=== PATIENT | male | born 1960 | race Caucasian/White ===

== ENCOUNTER → 2018-03-05 14:34 | Emergency (ER) | payer BC ==
--- OUTSIDE RECORDS SUMMARY | 2018-03-05 14:58 | XMS REPORT ---
:1960 External Reference #:[id number] Author Organization [employer] Address [address] [place] [address] [place] [address] Phone [phone] Care Team Providers Name Role Phone Raúl Martinez MD Care Team Information Social Media Marketing Specialist Unavailable Raúl Martinez MD Primary Care Physician Unavailable Payers Type Date Identification Numbers Payment Provider Subscriber Commercial Effective: Policy Number: BS Billy Jason 2013 [id number] Expires: 2015 PayID: [id number] [address] [address] [place] [address] [employer] B Policy Number: [id number] BS Facets Ryan Jason PayID: [id number] [address] [address] [place] [address] Problems Date Description Provider Status Onset: 03/03/2015 Sleep disorder Marci Obrien MD Active Onset: 03/25/2015 Obstructive sleep apnea syndrome Marci Obrien MD Active Family History Date Family Member(s) Problem(s) Comments Father Is 83 years old, in great health ; deviated septum Father No Current Problems Mother Minor heart attack; stent placed ; [facility] alive at age 81 doing well Siblings 3 Siblings All healthy ; younger brothert w/Etoh issues Social History Type Date Description Comments Marital Status Lives With Occupation Currently Working Cigarette Use Quite when age 20 ETOH Use Occasionally consumes alcohol ETOH Use Ipa and red wine ; bourbon Smoking Patient is a former smoker Recreational Drug Use Denies Drug Use Smoking Smoked in early teens and in college Daily Caffeine Tea occasionally ; mild coffee Exercise Type/Frequency Exercises regularly Allergies, Adverse Reactions, Alerts Date Description Reaction Status Severity Comments 03/03/2015 Azithromycin active GI upset 03/03/2015 Erythromycin active GI upset Medications Medication Date Status Form Strength Qnty SIG Indications Ordering Provider Epipen 2-Eduardo 03/02/ Active Solution 0.3mg/0.3M use as Unknown 2014 Auto-Injec L directed t Venlafaxine HCL 03/02/ Active Tablets 75mg take every Unknown 2014 day by mouth Glucosamine 03/02/ Active 2 every Unknown 2014 day by mouth Multivitamins 03/02/ Active Capsules 2 by mouth Unknown 2014 every day Valacyclovir 03/02/ Active Tablets 500mg 2 by mouth Unknown HCL 2014 every day prn for cold sores Flexamin Triple / Active 2 x a day Unknown Strength 0000 by mouth Glucosamine Condroitin Magnesium / Active Capsules 300mg 1 by mouth Unknown 0000 once a day Valacyclovir 03/03/ Hx Tablets 500mg 2 by mouth Unknown HCL 2014 - two times 03/03/ a day for 2014 2 days prn for cold sore Fish Oil Double 03/02/ Hx Capsules 1200mg 1 by mouth Unknown Strength 2014 - every day 2017 Campbell 3 03/02/ Hx Capsules 360mg 1 by mouth Unknown 2014 - qd. 2017 Fibercon 03/02/ Hx Tablets 625mg 625mg 1 by Unknown 2015 - mouth 03/04/ day 2017 Calcium 500 03/02/ Hx Tablets 1 by mouth Unknown 2014 - every day 2017 Vital Signs Date Vital Result Comment 03/05/2018 Height 66.75 inches 5'6.75" Weight 171.25 lb Heart Rate 94 /min recheck 74, reg-irregular, frequent pauses BP Systolic Sitting 124 mmHg Rue regular cuff BP Diastolic Sitting 84 mmHg Rue regular cuff BP Systolic Recheck 130 mmHg right BP Diastolic Recheck 70 mmHg right Respiratory Rate 16 /min O2 % BldC Oximetry 97 % BMI (Body Mass Index) 27.0 kg/m2 03/25/2015 Height 66.75 inches 5'6.75" Weight 174.00 lb Heart Rate 92 /min BP Systolic Sitting 138 mmHg BP Diastolic Sitting 78 mmHg Respiratory Rate 18 /min O2 % BldC Oximetry 99 % BMI (Body Mass Index) 27.5 kg/m2 03/03/2015 Height 66 inches 5'6" Weight 175.25 lb Heart Rate 102 /min BP Systolic Sitting 134 mmHg BP Diastolic Sitting 74 mmHg Respiratory Rate 18 /min Body Temperature 97.0 F O2 % BldC Oximetry 98 % BMI (Body Mass Index) 28.3 kg/m2 Neck Circumference in inches 16 Results Description No Information Procedures Date CPT Code Description Status 07/22/2016 79751 Holter Monitor Review (24 hr)dr review & interp only Completed 07/19/2016 37682 ECG Monitor/Recording W/Visual Superimposition Scanning Completed 06/06/2016 12859 Stress Test Completed 03/10/2015 76268 Sleep Study Unattended,HRT Rate,Oxygen Sat,Resp Completed Effort/Airflow 12/14/2010 01550 Color Flow Doppler/Interp & Reprt Completed 12/14/2010 28513 Pulse Wave/Continuous-Interp.RPT Completed 12/14/2010 98701 ECHO Transthorasic Realtime 2D W Doppler & Color Flow Completed Hosp Encounters Type Date Location Provider CPT E/M Dx Office Visit 03/05/2018 [facility] Luda Rocha, [address] G47.33 1:45p [facility] YEVGENIY FLORES, MEDNEZ I49.9 Office Visit 03/25/2015 9:45a [facility] [place] [address] G47.33 [facility] Office Visit 03/03/2015 2:45p [facility] [place] [address] G47.10 [facility] R06.83 Plan of Care Future Appointment(s):05/21/2018 2:00 pm - Luda Rocha DNP, RN, MALDONADO-BC at [facility]03/05/2018 - Luda Rocha DNP, RN, MALDONADO- BCG47.33 Obstructive sleep apnea (adult) (pediatric)Comments:On CPAP AHI 5.6/ hour mildFollow up:2 monthsRecommendations:Continue PAP device, Benefitting and compliant with treatment. Cleaning Wipe off mask daily (baby wipe-no scent, or warm water) Clean mask, tubing, filter, and water chamber weekly in mild no scent dish soap and water. Hang to dry. So-Clean is an option (not covered by insurance) If you have any sleepiness while driving you MUST avoid operating a vehicle or machinery. If you have difficulty with your equipment, or need to replace your mask or hoses, please contact your homecare agency. A weight change of 20 pounds or more may have an effect on your equipment; if you are experiencing problems please call for an appointment. If you have any further questions, please call the [facility] at [phone].i49.9 Cardiac arrhythmia, unspecifiedRecommendations:To be evaluated in the emergency room Call for an appointment to follow-up with primary care after released from hospital.
--- NOTE | 2018-03-05 15:10 | ED ---
Palpitations / Dysrhythmia - HPI Summary HPI Summary: The pt is a 57 y/[facility] since 14:00 today. He got referred to the ED by the staff of a sleep study he is participating in. The pt notes flutter, occassioanal UE tremors, anxiety but denies loss of appetite, dizziness, weakness, and CP. He reports that he drinks EtOH (wine and beer) daily with meals but does not consider himself an alcoholic. The pt reports caffeine consumption today. - History of Current Complaint Chief Complaint: EDDysrhythmPalp Time Seen by Provider: 03/05/18 14:51 Hx Obtained From: Patient Onset/Duration: Sudden Onset Character: Fluttering, Skipped Beats - Allergy/Home Medications Allergies/Adverse Reactions: Allergies Allergy/AdvReac Type Severity Reaction Status Date / Time azithromycin Allergy Unknown Verified 03/05/18 15:16 Reaction Details bee venom protein (honey bee) Allergy Itching Verified 03/05/18 15:16 erythromycin base Allergy GI Upset Verified 03/05/18 15:16 Home Medications: Home Medications Glucosamine 2 cap PO DAILY 03/05/18 [History Confirmed 03/05/18] Magnesium 300 mg Capsule 300 mg PO DAILY 03/05/18 [History Confirmed 03/05/18] Multivitamin [Multivitamins] 1 cap PO DAILY 03/05/18 [History Confirmed 03/05/18 ] Valacyclovir HCl [Valtrex] 2 tab PO DAILY PRN 03/05/18 [History Confirmed ] Venlafaxine HCl 75 mg PO DAILY 03/05/18 [History Confirmed 03/05/18] PMH/Surg Hx/FS Hx/Imm Hx Previously Healthy: No Endocrine/Hematology History: Denies: Hx Diabetes Cardiovascular History: Reports: Other Cardiovascular Problems/Disorders - SLIGHT ARRITHYMIA- FELT ON OCCASION Respiratory History: Reports: Hx Asthma - ATHLETIC , COLD WEATHER INDUCEDASTHMA IN THE PAST Musculoskeletal History: Reports: Hx Tendonitis - RIGHT ELBOW, Other Musculoskeletal History - BULGING DISC 3 YEARS AGO-RESOLVED Sensory History: Denies: Hx Hearing Aid Neurological History: Reports: Other Neuro Impairments/Disorders - 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 AGE 16- WISDOM TEETH REMOVED- IMPACTED. AGE 12- ORAL SURGERY Hx Anesthesia Reactions: No Infectious Disease History: No Infectious Disease History: Denies: Traveled Outside the [place] in Last 30 Days - Family History Known Family History: Positive: Cardiac Disease, Diabetes, Other - CVA, Parkinson's - Social History Occupation: Employed Full-time Lives: With Family Alcohol Use: Daily Alcohol Amount: glass of red wine, sips of burbon Substance Use Type: Reports: None Smoking Status (MU): Never Smoked Tobacco Review of Systems Constitutional: Negative - Weakness,loss of appetite, dizziness Positive: Other - Positive: aryhthmia, skipped beats, flutter. Negative: Chest Pain Neurological: Other - Positive: Occassioanal UE tremors Positive: Anxious All Other Systems Reviewed And Are Negative: Yes Physical Exam - Summary Physical Exam Summary: Constitutional: Well-developed, Well-nourished, Alert. (-) Distressed Skin: Warm, Dry HENT: Normocephalic; Atraumatic Eyes: Conjunctiva normal Neck: Musculoskeletal ROM normal neck. (-) JVD, (-) Stridor, (-) Tracheal deviation Cardio: Rhythm regular, rate normal, Heart sounds normal; Intact distal pulses; The pedal pulses are 2+ and symmetric. Radial pulses are 2+ and symmetric. (-) Murmur Pulmonary/Chest wall: Effort normal. (-) Respiratory distress, (-) Wheezes, (-) Rales Abd: Soft, (-) epigastric tenderness, (-) Distension, (-) Guarding, (-) Rebound Musculoskeletal: (-) Edema Lymph: (-) Cervical adenopathy Neuro: Alert, Oriented x3 Psych: Mood and affect Normal Triage Information Reviewed: Yes Vital Signs On Initial Exam: Initial Vitals Temp Pulse Resp BP Pulse Ox 97.7 F 77 18 146/93 99 03/05/18 14:43 03/05/18 14:43 03/05/18 14:43 03/05/18 14:43 03/05/18 14:43 Vital Signs Reviewed: Yes Diagnostics - Vital Signs Vital Signs Temp Pulse Resp BP Pulse Ox 03/05/18 14:43 97.7 F 77 18 146/93 99 - Laboratory Result Diagrams: 03/05/18 15:28 03/05/18 15:24 Lab Statement: Any lab studies that have been ordered have been reviewed, and results considered in the medical decision making process. - EKG 15:36 Cardiac Rate: NL - 72 bpm EKG Rhythm: Sinus Rhythm EKG Interpretation: No STEMI EKG Comparison: No Significant Change Course/Dx - Course Course Of Treatment: A 57 year-old M presents to the ED with a CC of sudden onset dysrhythmia since 14:00 today. He got referred to the ED by the staff of a sleep study he is participating in. The pt notes flutter, UE tremors, anxiety but denies loss of appetite, dizziness, weakness, and CP. He reports that he drinks EtOH (wine and beer) daily with meals but does not consider himself an alcoholic. The pt reports caffeine consumption today. A physical exam revealed regular heart rate. An EKG is unremarkable. The patient will be discharged with a final Dx of heart palpitations and instructions to follow up with his PCP in 2 days. Pt is agreeable with this plan. Allergies noted - Diagnoses Provider Diagnoses: Heart palpitations Discharge - Sign-Out/Discharge Documenting (check all that apply): Patient Departure - DC - Discharge Plan Condition: Stable Disposition: HOME Patient Education Materials: Heart Palpitations (ED) Referrals: Raúl Martinez MD [Primary Care Provider] - 2 Days Additional Instructions: RETURN TO THE EMERGENCY DEPARTMENT FOR CHANGING OR WORSENING SYMPTOMS - Attestation Statements Document Initiated by Scribe: Yes Documenting Scribe: Cinda Temple Provider For Whom Scribe is Documenting (Include Credential): Dr. Ted Torre MD Scribe Attestation: Cinda Saldana , scribed for Dr. Ted Torre MD on 03/05/18 at 1817.
[2018-03-05 15:36] LABS: Hematocrit 45 % (42-52); Hemoglobin 15.3 g/dl (14.0-18.0); Mean Corpuscular HGB Conc 34 g/dl (31-36); Mean Corpuscular Hemoglobin 32 pg (27-31); Mean Corpuscular Volume 94 fL (80-94); Mean Platelet Volume 7.7 um3 (7.4-10.4); Platelet Count 282 10^3/ul (150-450); Red Blood Count 4.74 10^6/ul (4.00-5.40); Red Cell Distribution Width 13 % (10.5-15); White Blood Count 6.9 10^3/ul (3.5-10.8)
[2018-03-05 15:52] LABS: EGFR Non-African American 78.3 (>60)
[2018-03-05 18:22] VITALS: BP 138/94
== END | disposition home or self-care (01) ==
LOC: ED 14:34
DX: R00.2 Palpitations (principal); R25.1 Tremor, unspecified; F41.9 Anxiety disorder, unspecified; Z88.3 Allergy status to other anti-infective agents
CPT/HCPCS: 36415; 80053; 84439; 84443; 85027; 93005; 99283